=== PATIENT | female | born 1990 | race Two or more races ===

== ENCOUNTER 2022-07-30 10:32 | Emergency (ER) | payer MEDICAID ==
[~2022-07-30] VITALS: Ht 167.6 cm; Wt 85.0 kg
[2022-07-30 11:30] VITALS: BP 103/73
[2022-07-30] MEDS ORDERED: KETOROLAC TROMETH 60MG/2ML VIAL IM ONE (11:30)
[2022-07-30] MEDS ORDERED: METH750T22 PO (12:19)
[2022-07-30] MEDS ORDERED: IBUP800T27 PO (12:19)
== END 2022-07-30 12:30 | disposition home or self-care (01) ==
LOC: ER 10:32
DX: M54.42 Lumbago with sciatica, left side (principal); X50.1XXA Overexertion from prolonged static or awkward postures, initial encounter; Y93.89 Activity, other specified; Y92.89 Other specified places as the place of occurrence of the external cause; Y99.8 Other external cause status
CPT/HCPCS: 72100; 96372; 99283; J1885

== ENCOUNTER → 2022-10-11 | Outpatient (CLI) | payer OTHER ==
[~2022-10-11] MED LIST: IBUP800T27 PO; METH750T22 PO
[2022-10-13 09:51] LABS: Hepatitis B Surface Antibody Negative (Negative)
== END | disposition home or self-care (01) ==
LOC: LAB 06:59
PROVIDERS: ATTEND Family Medicine
DX: S61.233A Puncture wound without foreign body of left middle finger without damage to nail, initial encounter (principal); X58.XXXA Exposure to other specified factors, initial encounter; Y93.89 Activity, other specified; Y92.89 Other specified places as the place of occurrence of the external cause; Y99.8 Other external cause status
CPT/HCPCS: 36415; 86703; 86706; 86803; 87340

== ENCOUNTER → 2023-06-15 | Outpatient (CLI) | payer BC ==
[~2023-06-15] MED LIST changes: +IBUP-1456 PO; -IBUP800T27 PO; +METH-1182 PO; -METH750T22 PO
[2023-06-15 08:16] LABS: Basophils # (auto) 0 10 ^3/uL (0-0.2); Basophils % (auto) 0.5 % (0.0-2.0); Eosinophils # (auto) 0.2 10 ^3/uL (0-0.8); Eosinophils % (auto) 3.3 % (0.0-7.0); Hematocrit 39.4 % (36.0-46.0); Hemoglobin 12.9 g/dL (12.2-16.2); Lymphocytes # (auto) 2.8 10 ^3/uL (0.4-5.4); Lymphocytes % (auto) 41.4 % (10.0-50.0); Mean Corpuscular Hgb Conc. 32.7 g/dL (32.0-36.0); Mean Corpuscular Volume 85.5 fL (80.0-100.0); Monocytes # (auto) 0.4 10 ^3/uL (0-1.3); Monocytes % (auto) 5.6 % (0.0-12.0); Neutrophils # (auto) 3.3 10 ^3/uL (1.6-8.6); Neutrophils % (auto) 49.2 % (37.0-80.0); White Blood Cell 6.7 10^3/uL (4.4-10.8)
[2023-06-15 08:46] LABS: Alanine Aminotransferase 10 U/L (7-40); Albumin 4.3 g/dL (3.2-4.8); Alkaline Phosphatase 71 U/L (46-116); Anion Gap 7 (5-15); Aspartate Aminotransferase 12 U/L (13-40); BUN/Creatinine Ratio 8.8 (10.0-20.0); Blood Urea Nitrogen 7 mg/dL (9-23); Calcium 9.4 mg/dL (8.5-10.1); Carbon Dioxide 25 mmol/L (20-30); Chloride 105 mmol/L (98-107); Cholesterol 246 mg/dL (< 200); Glucose 96 mg/dL (74-106); HDL Cholesterol 49 mg/dL (40-59); LDL Cholesterol 177 mg/dL (< 100); Potassium 4.2 mmol/L (3.5-5.1); Sodium 137 mmol/L (136-145); Triglycerides 151 mg/dL (< 150)
[2023-06-15 08:47] LABS: Bilirubin, Total 0.3 mg/dL (0.2-1.0); Total Protein 7.5 g/dL (5.7-8.2)
== END | disposition home or self-care (01) ==
LOC: LAB 08:03
PROVIDERS: ATTEND Student in an Organized Health Care Education/Training Program
DX: Z00.00 Encounter for general adult medical examination without abnormal findings (principal); E66.01 Morbid (severe) obesity due to excess calories; L40.9 Psoriasis, unspecified; R79.89 Other specified abnormal findings of blood chemistry
CPT/HCPCS: 36415; 80053; 80061; 84439; 84443; 85025

== ENCOUNTER 2023-07-30 09:45 | Emergency (ER) | payer BC ==
[~2023-07-30] VITALS: Ht 167.6 cm; Wt 81.7 kg
[2023-07-30 09:50] VITALS: BP 111/94; PULSE 116; RESP 18; O2SAT 99
[2023-07-30] MEDS ORDERED: IBUPROFEN 800 MG TAB PO ONE (11:00)
[2023-07-30 12:26] VITALS: TEMP 98.5
[2023-07-30 12:42] LABS: Rapid Influenza A Negative (Negative); Rapid Influenza B Negative (Negative)
[2023-07-30 12:43] LABS: COVID19 ANTIGEN SOFIA FIA NEGATIVE (NEGATIVE)
[2023-07-30] MEDS ORDERED: IBUP1TAB5 PO (12:57)
[2023-07-30] MEDS ORDERED: PROM1SOL4 PO (12:57)
[2023-07-30] MEDS ORDERED: ACET500T58 PO (12:57)
== END 2023-07-30 13:18 | disposition home or self-care (01) ==
LOC: EEVIPCON 09:45 → ER 09:45
DX: U07.1 COVID-19 (principal)
CPT/HCPCS: 36415; 87426; 87804

== ENCOUNTER 2023-08-08 08:13 | Emergency (ER) | payer BC ==
[~2023-08-08] VITALS: Ht 162.6 cm; Wt 78.9 kg
[~2023-08-08 08:13] MED LIST changes: +ACET500T58 PO; +IBUP1TAB5 PO; +PROM1SOL4 PO
[2023-08-08 08:43] VITALS: BP 114/79; PULSE 81; RESP 17; TEMP 98.1; O2SAT 100
[2023-08-08] MEDS ORDERED: METOCLOPRAMIDE HCL 5MG/ml INJ 2ml VIAL IM ONE (08:45)
[2023-08-08] MEDS ORDERED: KETOROLAC TROMETH 30 MG/ML 1ML VIAL IM ONE (08:45)
[2023-08-08] MEDS ORDERED: diphenhdrAMINE HCL 50 MG/1 ML VL IM ONE (08:45)
[2023-08-08] MEDS ORDERED: ZOFR4T PO (09:25)
[2023-08-08] MEDS ORDERED: IBUP1TAB5 PO (09:25)
== END 2023-08-08 09:35 | disposition home or self-care (01) ==
LOC: ER 08:13
DX: G43.909 Migraine, unspecified, not intractable, without status migrainosus (principal)
CPT/HCPCS: 96372; 99284; J1200; J1885; J2765

== ENCOUNTER → 2024-05-22 | Outpatient (CLI) | payer BC ==
[~2024-05-22] MED LIST changes: +ZOFR4T PO
[2024-05-22 08:51] LABS: Urine Bacteria FEW /hpf (None Seen); Urine Blood TRACE /uL (Negative); Urine Clarity Turbid (Clear); Urine Color Colorless (Yellow); Urine Hyaline Cast FEW /lpf (0 - 2); Urine Mucus FEW (None Seen); Urine Protein, UAD 1+ (Negative); Urine Specific Gravity 1.023 (1.001-1.035); Urine Urobilinogen Normal (Negative); Urine WBC 11 /hpf (0 - 5)
[2024-05-22 08:57] LABS: Basophils # (auto) 0.1 10 ^3/uL (0-0.2); Basophils % (auto) 0.8 % (0.0-2.0); Eosinophils # (auto) 0.3 10 ^3/uL (0-0.8); Eosinophils % (auto) 2.3 % (0.0-7.0); Hematocrit 41.2 % (36.0-46.0); Hemoglobin 13.6 g/dL (12.2-16.2); Lymphocytes # (auto) 3.4 10 ^3/uL (0.4-5.4); Lymphocytes % (auto) 29.9 % (10.0-50.0); Mean Corpuscular Hemoglobin 28.6 pg (28.0-32.0); Mean Corpuscular Hgb Conc. 32.9 g/dL (32.0-36.0); Mean Corpuscular Volume 86.8 fL (80.0-100.0); Monocytes # (auto) 0.5 10 ^3/uL (0-1.3); Monocytes % (auto) 4.1 % (0.0-12.0); Neutrophils # (auto) 7.2 10 ^3/uL (1.6-8.6); Neutrophils % (auto) 62.9 % (37.0-80.0); Platelet Count (auto) 389 10^3/uL (140-450); Red Blood Cells 4.75 10^6/uL (4.0-5.20); Red Cell Distribution Width 13.7 % (11.8-14.3); White Blood Cell 11.5 10^3/uL (4.4-10.8)
[2024-05-22 09:07] LABS: Alanine Aminotransferase 15 U/L (7-40); Albumin 4.4 g/dL (3.2-4.8); Alkaline Phosphatase 87 U/L (46-116); Anion Gap 8 (5-15); BUN/Creatinine Ratio 9.8 (10.0-20.0); Blood Urea Nitrogen 8 mg/dL (9-23); Calcium 9.5 mg/dL (8.7-10.4); Carbon Dioxide 25 mmol/L (20-31); Chloride 105 mmol/L (98-107); Glucose 96 mg/dL (74-106); LDL Cholesterol 189 mg/dL (< 100); Sodium 138 mmol/L (136-145); Triglycerides 278 mg/dL (< 150)
[2024-05-22 09:08] LABS: Aspartate Aminotransferase 9 U/L (13-40); Bilirubin, Total 0.3 mg/dL (0.2-1.0); Cholesterol 284 mg/dL (< 200); HDL Cholesterol 64 mg/dL (40-59); Total Protein 7.9 g/dL (5.7-8.2)
[2024-05-22 09:19] LABS: Free T3 2.84 pg/mL (2.3-4.2)
[2024-05-23 11:17] LABS: Free T4 (Free Thyroxine) 1.05 ng/dL (0.89-1.76)
== END | disposition home or self-care (01) ==
LOC: LAB 08:11
PROVIDERS: ATTEND Internal Medicine
DX: Z00.01 Encounter for general adult medical examination with abnormal findings (principal); R79.89 Other specified abnormal findings of blood chemistry; E78.2 Mixed hyperlipidemia
CPT/HCPCS: 36415; 80053; 80061; 81001; 83036; 84439; 84443; 84481; 85025

== ENCOUNTER → 2024-08-20 | Outpatient (CLI) | payer BC ==
[2024-08-20 09:57] LABS: Basophils # (auto) 0 10 ^3/uL (0-0.2); Basophils % (auto) 0.4 % (0.0-2.0); Eosinophils # (auto) 0.3 10 ^3/uL (0-0.8); Eosinophils % (auto) 2.6 % (0.0-7.0); Hematocrit 39.6 % (36.0-46.0); Hemoglobin 13.4 g/dL (12.2-16.2); Lymphocytes # (auto) 1.5 10 ^3/uL (0.4-5.4); Lymphocytes % (auto) 14.7 % (10.0-50.0); Mean Corpuscular Hemoglobin 28.9 pg (28.0-32.0); Mean Corpuscular Hgb Conc. 33.8 g/dL (32.0-36.0); Mean Corpuscular Volume 85.6 fL (80.0-100.0); Monocytes # (auto) 0.6 10 ^3/uL (0-1.3); Monocytes % (auto) 6.1 % (0.0-12.0); Neutrophils # (auto) 7.9 10 ^3/uL (1.6-8.6); Neutrophils % (auto) 76.2 % (37.0-80.0); Platelet Count (auto) 362 10^3/uL (140-450); Red Blood Cells 4.62 10^6/uL (4.0-5.20); Red Cell Distribution Width 14.1 % (11.8-14.3); White Blood Cell 10.4 10^3/uL (4.4-10.8)
[2024-08-21 07:07] LABS: RPR Non Reactive (Non Reactive)
[2024-08-21 12:59] LABS: Amphetamine Screen, Urine Neg (NEGATIVE); Barbiturate Scree,Urine Neg (NEGATIVE); Opiate Scree,Urine Neg (NEGATIVE); Phencyclidine Screen, Urine Neg (NEGATIVE)
[2024-08-21 13:00] LABS: Benzodiazephine Screen, Urine Neg (NEGATIVE); Cocaine Screen, Urine Neg (NEGATIVE)
[2024-08-21 13:06] LABS: Chlamydia Trachomatis, NAA Negative (Negative); Neisseria gonorrhoeae, NAA Negative (Negative)
[2024-08-21 13:35] LABS: Cannabinoid Screen, Urine Neg (NEGATIVE)
== END | disposition home or self-care (01) ==
LOC: LAB 08:57
PROVIDERS: ATTEND Obstetrics & Gynecology
DX: Z34.00 Encounter for supervision of normal first pregnancy, unspecified trimester (principal); Z72.51 High risk heterosexual behavior; Z3A.00 Weeks of gestation of pregnancy not specified
CPT/HCPCS: 36415; 80307; 83036; 84144; 84702; 85025; 86592; 86703; 86762; 86900; 86901; 87086; 87340

== ENCOUNTER → 2024-09-25 | Outpatient (CLI) | payer BC | END | disposition home or self-care (01) | LOC: LAB 09:01 | PROVIDERS: ATTEND Obstetrics & Gynecology | DX: Z34.81 Encounter for supervision of other normal pregnancy, first trimester (principal); Z3A.00 Weeks of gestation of pregnancy not specified | CPT/HCPCS: 86850; 86900; 86901 ==

== ENCOUNTER → 2024-10-03 | Outpatient (CLI) | payer BC ==
[2024-10-03 08:34] LABS: Basophils # (auto) 0.1 10 ^3/uL (0-0.2); Basophils % (auto) 0.6 % (0.0-2.0); Eosinophils # (auto) 0.2 10 ^3/uL (0-0.8); Eosinophils % (auto) 1.3 % (0.0-7.0); Hematocrit 34.6 % (36.0-46.0); Hemoglobin 11.8 g/dL (12.2-16.2); Lymphocytes # (auto) 2.7 10 ^3/uL (0.4-5.4); Lymphocytes % (auto) 23.1 % (10.0-50.0); Mean Corpuscular Hemoglobin 29.3 pg (28.0-32.0); Mean Corpuscular Volume 86.1 fL (80.0-100.0); Monocytes # (auto) 0.7 10 ^3/uL (0-1.3); Monocytes % (auto) 5.6 % (0.0-12.0); Neutrophils # (auto) 8.3 10 ^3/uL (1.6-8.6); Neutrophils % (auto) 69.4 % (37.0-80.0); Platelet Count (auto) 321 10^3/uL (140-450); Red Blood Cells 4.02 10^6/uL (4.0-5.20); Red Cell Distribution Width 13.9 % (11.8-14.3); White Blood Cell 11.9 10^3/uL (4.4-10.8)
[2024-10-03 09:11] LABS: Alanine Aminotransferase 13 U/L (7-40); Alkaline Phosphatase 71 U/L (46-116); Anion Gap 10 (5-15); Aspartate Aminotransferase 15 U/L (13-40); BUN/Creatinine Ratio 8.2 (10.0-20.0); Bilirubin, Total 0.3 mg/dL (0.2-1.0); Calcium 9.2 mg/dL (8.7-10.4); Carbon Dioxide 24 mmol/L (20-31); Chloride 103 mmol/L (98-107); Glucose 84 mg/dL (74-106); Potassium 4.3 mmol/L (3.5-5.1); Sodium 137 mmol/L (136-145); Total Protein 6.9 g/dL (5.7-8.2)
[2024-10-03 09:42] LABS: Blood Urea Nitrogen 5 mg/dL (9-23); Cholesterol 303 mg/dL (< 200); HDL Cholesterol 67 mg/dL (40-59); LDL Cholesterol 194 mg/dL (< 100); Triglycerides 265 mg/dL (< 150)
== END | disposition home or self-care (01) ==
LOC: LAB 08:09
PROVIDERS: ATTEND Internal Medicine
DX: E78.2 Mixed hyperlipidemia (principal)
CPT/HCPCS: 36415; 80053; 80061; 85025

== ENCOUNTER → 2024-10-22 | Outpatient (CLI) | payer BC ==
[2024-10-22 13:15] LABS: Urine Bacteria MOD /hpf (None Seen); Urine Blood Negative /uL (Negative); Urine Clarity Turbid (Clear); Urine Color Light-Yellow (Yellow); Urine Mucus FEW (None Seen); Urine Protein, UAD Negative (Negative); Urine Specific Gravity 1.017 (1.001-1.035); Urine Squamous Epithelial Cell MOD /hpf (<5); Urine Urobilinogen Normal (Negative); Urine WBC 8 /HPF (0-5); Urine pH 6.5 (5.0-9.0)
== END | disposition home or self-care (01) ==
LOC: LAB 12:57
PROVIDERS: ATTEND Licensed Practical Nurse
DX: N13.0 Hydronephrosis with ureteropelvic junction obstruction (principal)
CPT/HCPCS: 81001

== ENCOUNTER 2024-12-12 08:17 | Outpatient (CLI) | payer BC ==
[2024-12-12 08:33] LABS: Basophils # (auto) 0.1 10 ^3/uL (0-0.2); Basophils % (auto) 0.5 % (0.0-2.0); Eosinophils # (auto) 0.1 10 ^3/uL (0-0.8); Eosinophils % (auto) 1.3 % (0.0-7.0); Hematocrit 35.5 % (36.0-46.0); Hemoglobin 11.9 g/dL (12.2-16.2); Lymphocytes # (auto) 2.3 10 ^3/uL (0.4-5.4); Lymphocytes % (auto) 19.3 % (10.0-50.0); Mean Corpuscular Hemoglobin 28.6 pg (28.0-32.0); Mean Corpuscular Hgb Conc. 33.4 g/dL (32.0-36.0); Mean Corpuscular Volume 85.4 fL (80.0-100.0); Monocytes # (auto) 0.7 10 ^3/uL (0-1.3); Monocytes % (auto) 6.1 % (0.0-12.0); Neutrophils # (auto) 8.6 10 ^3/uL (1.6-8.6); Neutrophils % (auto) 72.8 % (37.0-80.0); Platelet Count (auto) 337 10^3/uL (140-450); Red Blood Cells 4.16 10^6/uL (4.0-5.20); Red Cell Distribution Width 14.4 % (11.8-14.3); White Blood Cell 11.8 10^3/uL (4.4-10.8)
== END 2024-12-12 17:00 | disposition home or self-care (01) ==
LOC: LAB 08:17
PROVIDERS: ATTEND Obstetrics & Gynecology
DX: Z34.80 Encounter for supervision of other normal pregnancy, unspecified trimester (principal); Z3A.00 Weeks of gestation of pregnancy not specified
CPT/HCPCS: 36415; 82951; 83036; 85025

== ENCOUNTER 2025-01-22 09:30 | Observation (INO) | payer BC ==
[~2025-01-22] VITALS: Ht 167.6 cm; Wt 98.9 kg
[2025-01-22 10:22] LABS: Hematocrit 39.1 % (36.0-46.0); Hemoglobin 12.7 g/dL (12.2-16.2); Mean Corpuscular Hemoglobin 27.9 pg (28.0-32.0); Mean Corpuscular Volume 85.6 fL (80.0-100.0); Nucleated Red Blood Cells % 0.1 %
[2025-01-22 10:32] LABS: Alanine Aminotransferase 14 U/L (7-40); Albumin 4.0 g/dL (3.2-4.8); Anion Gap 7 (5-15); Calcium 9.2 mg/dL (8.7-10.4); Carbon Dioxide 25 mmol/L (20-31); Chloride 102 mmol/L (98-107); Glucose 83 mg/dL (74-106); Potassium 3.7 mmol/L (3.5-5.1); Total Protein 7.0 g/dL (5.7-8.2)
[2025-01-22 10:33] LABS: Alkaline Phosphatase 145 U/L (46-116); BUN/Creatinine Ratio 8.3 (10.0-20.0); Bilirubin, Total 0.3 mg/dL (0.2-1.0); Blood Urea Nitrogen < 5 mg/dL (9-23); Sodium 134 mmol/L (136-145); Uric Acid 3.1 mg/dL (3.1-7.8)
[2025-01-22 10:36] LABS: INR 0.95 (0.9-1.15); Partial Thromboplastin Time 31.3 SEC (24.5-34.5); Prothrombin Time 10.1 sec (9.3-11.8)
--- NOTE | 2025-01-22 10:47 | DVH ---
BIOPHYSICAL PROFILE HISTORY: R/O PIH Comparison Study: None TECHNIQUE: Multiple real-time grayscale sonographic images through the gravid uterus of the fetus wi th duplex Doppler color flow and M-mode spectral analysis FINDINGS: BIOPHYSICAL PROFILE: breathing score: 2 movement score: 2 tone score: 2 Quantitative SUNSHINE score: 2 (SUNSHINE: 11.3 Cm.) Total score: 8 The cervix is closed and measures 3.0 cm Single live fetus in cephalic presentation. heart rate 138 beats per minute. Posterior placenta without previa or abruption IMPRESSION: Biophysical profile score: 8
[2025-01-22 11:07] LABS: Urine Protein, UAD Negative (Negative)
[2025-01-22 11:17] LABS: Protein, Urine 21.1 mg/dL (1-14)
[2025-01-22] MEDS: TERBUTALINE SULFATE 1 MG/ML 1ML VIAL SC SCH (11:32)
[2025-01-22] MEDS ORDERED: PREN-96 PO (12:07)
--- NOTE | 2025-01-23 04:47 | DVHDS2 ---
Physician Discharge Progress N Final Diagnosis: PIH 33WKS Operations or Procedures: Operations or Procedures NST REACTIVE REVIWED,SONO Condition on Discharge: Good Disposition: Home Discharge Instructions: Diet: Regular Activity: No Restrictions, As Tolerated Medications: NA Follow Up Care: Specialist: 1W Discharge Statement: "Patient was advised to return to the ER or call 911 if any headaches, dizziness, shortness of breath, chest pain, abdominal pain, bleeding, fevers, or worsening of medical condition. Patient was counseled about treatment plan, medications, possible side effects, patientverbalized understanding. All questions were answered to the best of my ability. This discharge took greater then 30 minutes in planning, reviewing documentat ion, counseling the patient, and discussing with other team members." Visit Coding OBGYN Date of Service: Jan 22, 2025 Billing Provider: BEATRIS BARGER DO ASSISTANT GOLF COACH Common Visit Codes: 95945-[id number] OBS CARE (HIGH) ASSISTANT GOLF COACH Procedure Codes: 98576-66- NON-STRESS TEST BEATRIS BARGER DO Jan 23, 2025 04:47
== END 2025-01-22 12:15 | disposition home or self-care (01) ==
LOC: LDRP 09:30 → UNDOADMOB 09:30 → LDRP 09:43
PROVIDERS: ADMIT Obstetrics & Gynecology; ATTEND Obstetrics & Gynecology
DX: O13.3 Gestational [pregnancy-induced] hypertension without significant proteinuria, third trimester (principal); Z98.890 Other specified postprocedural states; Z79.899 Other long term (current) drug therapy; Z3A.33 33 weeks gestation of pregnancy
CPT/HCPCS: 36415; 76818; 80053; 81001; 81002; 82570; 84156; 84550; 85025; 85610; 85730; 94760; G0378; J3105; 59025; 76819; 96372

== ENCOUNTER 2025-02-10 10:28 | Observation (INO) | payer BC ==
[~2025-02-10 10:28] MED LIST changes: +PREN-96 PO
--- NOTE | 2025-02-11 06:29 | DVHDS2 ---
Discharge Summary Date of Admission Feb 10, 2025 at 10:28 Date of Discharge: Feb 10, 2025 Admitting Diagnosis 36 weeks, dizziness , decreased FM Brief Hx & Hospital Course: Decreased FM reassuring NST and US performed Operations or Procedures none Condition at Discharge: Good Final Diagnosis/Problems List reasuring ht tones, no pathology or maternal Discharge Disposition: Home Discharge Instruct/Medications Diet: Regular Activity: Light activity Activity comment: kick counts labor precautions Scheduled Ibuprofen (Ibuprofen), 1 TAB PO TID Ibuprofen Micronized (Ibuprofen), 600 MG PO TIDWMEALS Methocarbamol (Methocarbamol), 750 MG PO BID Vit W/ Ferrous Fumara ( One Daily), 1 TAB PO DAILY, (Reported) Scheduled PRN Acetaminophen (Acetaminophen), 1,000 MG PO TIDPRN PRN Ibuprofen Micronized (Ibuprofen), 600 MG PO Q6HP PRN Ondansetron Odt 4MG Tab (Zofran Po), 4 MG PO Q6HP PRN Promethazine-Dm (Promethazine Dm 6.25-15 mg/5Ml), 5 ML PO TIDPRN PRN Discharge Statement: "Patient was advised to return to the ER or call 911 if any headaches, dizziness, shortness of breath, chest pain, abdominal pain, bleeding, fevers, or worsening of medical condition. Patient was counseled about treatment plan, medications, possible side effects, patientverbalized understanding. All questions were answered to the best of my ability. This discharge took greater then 30 minutes in planning, reviewing documentation, counseling the patient, and discussing with other team members." ASSESSMENT ASSESSMENT Assessment Visit Coding OBGYN Date of Service: Feb 10, 2025 Billing Provider: INEZ ALBRIGHT DO CHIEF CLINICAL OFFICER Common Visit Codes: 78145-ILL/OBS SAME DATE (LOW), 40297-DXM/OBS SAME DATE (MOD), 00104-MYP/OBS SAME DATE (HIGH) CHIEF CLINICAL OFFICER Procedure Codes: 59340-EXR DEL INCLUDING INEZ ALBRIGHT DO Feb 11, 2025 06:29
== END 2025-02-10 12:24 | disposition home or self-care (01) ==
LOC: LDRP 10:28 → UNDOADMOB 10:28 → LDRP 10:52 → UNDODISOB 12:24
PROVIDERS: ADMIT Obstetrics & Gynecology; ATTEND Obstetrics & Gynecology
DX: O36.8130 Decreased fetal movements, third trimester, not applicable or unspecified (principal); O26.893 Other specified pregnancy related conditions, third trimester; R42 Dizziness and giddiness; Z3A.36 36 weeks gestation of pregnancy; Z98.890 Other specified postprocedural states; Z79.899 Other long term (current) drug therapy
CPT/HCPCS: 59025; 81002; 94760; G0378

== ENCOUNTER 2025-02-19 10:36 | Observation (INO) | payer BC ==
[~2025-02-19] VITALS: Ht 167.6 cm; Wt 90.7 kg
--- NOTE | 2025-02-19 11:29 | DVH ---
BIOPHYSICAL PROFILE HISTORY: PIH TECHNIQUE: Multiple transabdominal real-time grayscale sonographic images through the gravid uterus of the fetus with duplex Doppler color flow and M-mode spectral analysis FINDINGS: BIOPHYSICAL PROFILE: breathing score: 2 movement score: 2 tone score: 2 Quantitative SUNSHINE score: 2 (SUNSHINE: 12.2 Cm.) Total score: 8 The cervix WAS NOT SEEN Single live fetus in cephalic presentation. heart rate 122 beats per minute. Grade II posterior placenta without previa or abruption IMPRESSION: Biophysical profile score: 8/8
[2025-02-19 11:39] LABS: Hematocrit 38.3 % (36.0-46.0); Hemoglobin 12.7 g/dL (12.2-16.2); Mean Corpuscular Hemoglobin 28.3 pg (28.0-32.0); Mean Corpuscular Volume 85.1 fL (80.0-100.0); Nucleated Red Blood Cells % 0.1 %
[2025-02-19 11:55] LABS: Alanine Aminotransferase 13 U/L (7-40); Anion Gap 9 (5-15); Calcium 8.8 mg/dL (8.7-10.4); Carbon Dioxide 22 mmol/L (20-31); Chloride 104 mmol/L (98-107); Potassium 4.1 mmol/L (3.5-5.1); Total Protein 6.5 g/dL (5.7-8.2); Uric Acid 3.7 mg/dL (3.1-7.8)
[2025-02-19 11:56] LABS: Albumin 3.7 g/dL (3.2-4.8); Alkaline Phosphatase 158 U/L (46-116); BUN/Creatinine Ratio 9.3 (10.0-20.0); Bilirubin, Total 0.3 mg/dL (0.2-1.0); Blood Urea Nitrogen < 5 mg/dL (9-23); Sodium 135 mmol/L (136-145)
[2025-02-19 12:09] LABS: Glucose 77 mg/dL (74-106); INR 0.89 (0.9-1.15); Partial Thromboplastin Time 29.9 SEC (24.5-34.5); Prothrombin Time 9.5 sec (9.3-11.8)
[2025-02-19 12:10] LABS: Urine Budding Yeast OCCASIONAL /hpf (None Seen); Urine Protein, UAD TRACE (Negative)
[2025-02-19 12:22] LABS: Protein, Urine 37.7 mg/dL (1-14)
--- NOTE | 2025-02-19 14:02 | DVHDS2 ---
Physician Discharge Progress N Final Diagnosis: pih 37wks Operations or Procedures: Operations or Procedures nst reactive reviwed,sono Condition on Discharge: Good Disposition: Home Discharge Instructions: Diet: Regular Activity: No Restrictions, As Tolerated Medications: do 24hr uroine and return in 2 days Follow Up Care: Specialist: 2d Discharge Statement: "Patient was advised to return to the ER or call 911 if any headaches, dizziness, shortness of breath, chest pain, abdominal pain, bleeding, fevers, or worsening of medical condition. Patient was counseled about treatment plan, medications, possible side effects, patientverbalized understanding. All questions were answered to the best of my ability. This discharge took greater then 30 minutes in planning, reviewing documentation, counseling the patient, and discussing with other team members." Visit Coding OBGYN Date of Service: Feb 19, 2025 Billing Provider: BEATRIS BARGER DO DIRECTOR OF PUBLIC SAFETY Common Visit Codes: [id number] INP/OBS CARE (HIGH) DIRECTOR OF PUBLIC SAFETY Procedure Codes: 79598-75- NON-STRESS TEST BEATRIS BARGER DO Feb 19, 2025 14:02
[2025-02-19] MEDS: LACTATED RINGER'S 1,000 ML IV ONE (14:25)
== END 2025-02-19 14:48 | disposition home or self-care (01) ==
LOC: LDRP 10:36 → UNDOADMOB 10:36 → LDRP 10:39
PROVIDERS: ADMIT Obstetrics & Gynecology; ATTEND Obstetrics & Gynecology
DX: O13.3 Gestational [pregnancy-induced] hypertension without significant proteinuria, third trimester (principal); Z3A.37 37 weeks gestation of pregnancy; Z79.899 Other long term (current) drug therapy
CPT/HCPCS: 36415; 76818; 80053; 81001; 81002; 82570; 84156; 84550; 85025; 85610; 85730; 94760; 96360; 96361; G0378; 59025; 76819

== ENCOUNTER 2025-02-21 13:57 | Observation (INO) | payer BC ==
[~2025-02-21] VITALS: Ht 167.6 cm; Wt 100.2 kg
--- NOTE | 2025-02-21 15:04 | DVH ---
BIOPHYSICAL PROFILE HISTORY: PIH TECHNIQUE: Multiple transabdominal real-time grayscale sonographic images through the gravid uterus of the fetus with duplex Doppler color flow and M-mode spectral analysis FINDINGS: BIOPHYSICAL PROFILE: breathing score: 2 movement score: 2 tone score: 2 Quantitative SUNSHINE score: 2 (SUNSHINE: 15.6 Cm.) Total score: 8 The cervix not well visualized Single live fetus in cephalic presentation. heart rate 139 beats per minute. Grade 3 posterior placenta without previa or abruption IMPRESSION: Biophysical profile score: 8
[2025-02-21 15:29] LABS: Urine Protein, UAD Negative (Negative)
[2025-02-21 15:42] LABS: Protein, Urine 19.1 mg/dL (1-14)
[2025-02-21 16:34] LABS: 24 Hr. Total Protein, Urine 764.0 mg/24 Hr (<149.1); Urine Total Volume, 24 Hours 4000.0 mL
[2025-02-21] MEDS: LACTATED RINGER'S 1,000 ML IV ONE (17:47)
== END 2025-02-21 17:00 | disposition home or self-care (01) ==
LOC: UNDOADMOB 13:57 → LDRP 13:57
PROVIDERS: ADMIT Obstetrics & Gynecology; ATTEND Obstetrics & Gynecology
DX: O13.3 Gestational [pregnancy-induced] hypertension without significant proteinuria, third trimester (principal); Z3A.37 37 weeks gestation of pregnancy; Z79.899 Other long term (current) drug therapy; Z98.890 Other specified postprocedural states
CPT/HCPCS: 76818; 81001; 81002; 82570; 84156; 94760; 96360; 96361; G0378; 59025; 76819

== ENCOUNTER 2025-02-22 06:46 | Observation (INO) | payer BC, MEDICAID ==
--- NOTE | 2025-02-22 14:01 | DVHDS2 ---
Physician Discharge Progress N Final Diagnosis: Gestational HTN Operations or Procedures: Operations or Procedures NST only Commentary: Commentary Bp's normal Not in labor NST category 1, reactive Condition on Discharge: Stable Disposition: Home Discharge Instructions: Diet: Regular Activity: Light activity Follow Up/Referral: as scheduled Medications: na Follow Up Care: Discharge Statement: "Patient was advised to return to the ER or call 911 if any headaches, diz ziness, shortness of breath, chest pain, abdominal pain, bleeding, fevers, or worsening of medical condition. Patient was counseled about treatment plan, medications, possible side effects, patientverbalized understanding. All questions were answered to the best of my ability. This discharge took greater then 30 minutes in planning, reviewing documentation, counseling the patient, and discussing with other team members." Visit Coding OBGYN Date of Service: Feb 22, 2025 Billing Provider: MADONNA HICKMAN DO SOUND TECHNICIAN Common Visit Codes: 47548-PAG/OBS SAME DATE (MOD) SOUND TECHNICIAN Procedure Codes: 96132-77- NON-STRESS TEST MADONNA HICKMAN DO Feb 22, 2025 14:01
== END 2025-02-22 11:11 | disposition home or self-care (01) ==
LOC: LDRP 09:58
PROVIDERS: ADMIT Obstetrics & Gynecology; ATTEND Obstetrics & Gynecology
DX: O13.3 Gestational [pregnancy-induced] hypertension without significant proteinuria, third trimester (principal); Z3A.38 38 weeks gestation of pregnancy; Z98.890 Other specified postprocedural states; Z79.899 Other long term (current) drug therapy
CPT/HCPCS: 59025; 81002; 94760; G0378

== ENCOUNTER 2025-02-25 07:02 | Inpatient (IN) | payer BC, MEDICAID ==
[~2025-02-25] VITALS: Ht 167.6 cm; Wt 100.2 kg
[2025-02-25] MEDS ORDERED: LIDOCAINE 2%HCL (LOCAL ANESTH.) INJ 20ML MDV IJ PRN (07:15)
[2025-02-25] MEDS ORDERED: BUTORPHANOL TARTRATE 2 MG/1 ML VIAL IV PRN ×2 (07:15)
[2025-02-25] MEDS: LACT. RINGERS/OXYTOCIN 20UNITS 500 ML IV ONE (07:45)
[2025-02-25 08:02] LABS: INR 0.91 (0.9-1.15); Partial Thromboplastin Time 29.4 SEC (24.5-34.5); Prothrombin Time 9.7 sec (9.3-11.8)
[2025-02-25 08:05] LABS: Hematocrit 37.3 % (36.0-46.0); Hemoglobin 12.4 g/dL (12.2-16.2); Mean Corpuscular Hemoglobin 28.5 pg (28.0-32.0); Mean Corpuscular Volume 85.6 fL (80.0-100.0); Nucleated Red Blood Cells % 0.0 %
[2025-02-25 08:06] LABS: Amphetamine Screen, Urine Neg (NEGATIVE); Barbiturate Scree,Urine Neg (NEGATIVE); Benzodiazephine Screen, Urine Neg (NEGATIVE); Cannabinoid Screen, Urine Neg (NEGATIVE); Cocaine Screen, Urine Neg (NEGATIVE); Opiate Scree,Urine Neg (NEGATIVE); Phencyclidine Screen, Urine Neg (NEGATIVE)
[2025-02-25 08:08] LABS: Alanine Aminotransferase 13 U/L (7-40); Albumin 3.9 g/dL (3.2-4.8); Alkaline Phosphatase 175 U/L (46-116); Anion Gap 12 (5-15); BUN/Creatinine Ratio 8.1 (10.0-20.0); Blood Urea Nitrogen < 5 mg/dL (9-23); Calcium 9.4 mg/dL (8.7-10.4); Carbon Dioxide 19 mmol/L (20-31); Chloride 104 mmol/L (98-107); Glucose 123 mg/dL (74-106); Potassium 3.5 mmol/L (3.5-5.1); Sodium 135 mmol/L (136-145); Total Protein 6.7 g/dL (5.7-8.2)
[2025-02-25 08:09] LABS: Bilirubin, Total 0.2 mg/dL (0.2-1.0)
--- NOTE | 2025-02-25 08:14 | DVHHP2 ---
OB CC & HPI Date Date of Admission: Feb 25, 2025 Patient Identification: : 1 Para: 0 EDC: Mar 08, 2025 EGA: 38.3 Chief Complaints: Reason for admission: induction of labor Indication for induction: other (PIH per Dr. Astudillo) Admission Nurse Assessment Rev: Yes History of Present Complaints 34 yo presents to unit for IOL for PIH, denies any ALVAREZ, blurry vision or epigastric pain at this time. denies lof or vag bleeding, confirms +FM and no UC at this time PNC: Routine PNC at [facility] OB with Dr. Astudillo, adequate visits. GTT wnl, dating based on 7wk sono, GBS positive. Past Medical History Cardiac: No pertinent Hx Pulmonary: No pertinent Hx Central Nervous System: No pertinent Hx GI: No pertinent Hx Hemotology/Oncology: No pertinent Hx Hepatobiliary: No pertinent Hx Psychiatric: Anxiety Musculoskeletal: No pertinent Hx Rheumotologic: No pertinent Hx Infectious Disease: No peritnent Hx ENT: No pertinent Hx Renal/: No pertinent Hx Endocrine: No pertinent Hx Dermatology: Psoriasis Past Surgical History: No pertinent Hx OB History OB History Care: Good Care Ultrasounds: Normal mid trimester US Obstetrical Complications: Other (PI) Medical Complications: None Allergies: Coded Allergies: NO KNOWN ALLERGIES (Unverified , 07/30/22) Allergies NKDA Home Meds Active Scripts Ondansetron Odt 4MG Tab (ZOFRAN PO) 4 Mg Tb, 4 MG PO Q6HP PRN, #30 TAB ODT TAB-DISSOLVE IN MOUTH, THEN SWALLOW Prov:JOSH MARIN PAC 08/08/23 Ibuprofen Micronized (Ibuprofen) 600 Mg Tab, 600 MG PO Q6HP PRN, #30 TAB Prov:JOSH MARIN PAC 08/08/23 Promethazine-Dm (Promethazine Dm 6.25-15 mg/5Ml) 1 Aurea Aurea, 5 ML PO TIDPRN PRN for 10 Days, #150 ML 0 Refills Prov:JOHNNA MEHTA [employer] 07/30/23 Acetaminophen (Acetaminophen) 500 Mg Tab, 1000 MG PO TIDPRN PRN for 10 Days, #60 TAB 0 Refills Prov:JOHNNA MEHTA [employer] 07/30/23 Ibuprofen Micronized (Ibuprofen) 600 Mg Tab, 600 MG PO TIDWMEALS for 10 Days, #30 TAB 0 Refills Prov:JOHNNA MEHTA [employer] 07/30/23 Methocarbamol (Methocarbamol) 750 Mg Tab, 750 MG PO BID, #20 TAB Prov:LORI CHEEMA PA 07/30/22 Ibuprofen (Ibuprofen) 800 Mg Tab, 1 TAB PO TID, #30 TAB Prov:LORI CHEEMA 07/30/22 Reported Medications Vit W/ Ferrous Fumara ( One Daily) Daily Tab, 1 TAB PO DAILY, #90 TAB 3 Refills 01/22/25 Current Medications Current Medications Medications (Trade) Dose Ordered Sig/Eliza Route PRN Reason Start Time Stop Time Status Last Admin Lactated Ringer's 1,000 ml @ 125 mls/hr Q8H IV 02/25/25 07:15 UNV Penicillin G Potassium [id number] units/Dextrose 50 ml @ 100 mls/hr Q4H IV 02/25/25 11:15 UNV Witch Silvia (Tucks) 1 pad PRN PRN TOP PERINEAL AREA DISCOMFORT 02/25/25 07:15 UNV Sodium Lauryl Sulfate (Phisoderm) 240 ml PRN PRN TOP PERINEAL AREA DISCOMFORT 02/25/25 07:15 UNV Benzocaine (Dermoplast) 1 applic PRN PRN TOP PERINEAL AREA DISCOMFORT 02/25/25 07:15 UNV Butorphanol Tartrate (Stadol Injection) 1 mg Q4HPRN PRN IV MODERATE PAIN (4-6 PAIN SCALE) 02/25/25 07:15 UNV Butorphanol Tartrate (Stadol Injection) 2 mg Q4HPRN PRN IV SEVERE PAIN (7-10 PAIN SCALE) 02/25/25 07:15 UNV Misoprostol (Cytotec) 50 mcg Q4HPRN PRN PO CERVICAL RIPENING 02/25/25 07:15 UNV Lidocaine HCl (Xylocaine) 20 ml ONCE PRN IJ PERINEAL AREA DISCOMFORT 02/25/25 07:15 UNV Family & Social History Family/Social History Past Family/Social History: Fmh: denies Social hx: denies alcohol, drugs or tobacco, denies IPV, feels safe at home Blood Type: O+ Rubella: immune RPR/VDRL: Negative GBS Status: Positive HBsAG: Negative Review of Systems Constitutional: No symptom reported Ears, Nose, & Throat: No symptom reported Eyes: No symptom reported Pulmonary/Respiratory: No symptom reported Cardiovascular: No symptom reported Gastrointestinal: No symptom reported Genitourinary: No symptom reported Musculoskeletal: No symptom reported Skin: No symptom reported Psychiatric: Anxiety Endocrine: No symptom reported Hemotologic/Lymphatic: No symptom reported All Other Systems pt states she has occ migraines OB Admission Exam Physical Exam Vitals: VSS see CPN HEENT: TMs Normal, Fontanelles Normal, Nasal Mucosa Normal, Eyes non-injected, Oropharynx Normal, PERRLA, Moist Membranes, EOMI Heart: Rhythm Normal Lungs: Clear Abdomen: Gravid Extremities: Edema (1+ non-pitting BLE) Reflexes: Normal Cervical Dilatation: 2cm Effacement: Other (60) Station: -2 Membranes: Intact Heart Rate: 120's Accelerations: Accelerations Present Decelerations: No Decelerations Fci Variability: Average (6-25) Contractions on Admission: 6-10 Minutes Apart Frequency of Contractions: 5 min Duration: 60 sec Intensity: Mild OB Plan Plan Admitting Diagnosis: 34yo IUP@38.3wks Induction of Labor for PIH Category I EFM Intact Membranes GBS positive Plan: Induction Induction Methd: Misoprostol protocol Other Plan: Admit to L&D Informed consent obtained Discussed risks, benefits, alternatives of IOL. Pt consents to IOL with PO cytotec. Start IV PCN when in active labor or ROM. monitoring per order Routine labs and preE labs ordered OB EFW ordered Pain mgmt PRN Frequent position changes in and out of bed encouraged Limit SVE unless necessary Intrauterine resuscitation PRN Anticipate CNM co-managing with Dr. Astudillo Visit Coding OBGYN Date of Service: Feb 25, 2025 Billing Provider: RYAN MCGRAW CNM CABIN CREW Common Visit Codes: 40971-[id number] INP/OBS CARE (HIGH) CABIN CREW Procedure Codes: 76338-48- NON-STRESS TEST ABRIL JASSO Feb 25, 2025 08:14
[2025-02-25 08:22] LABS: Urine Protein, UAD Negative (Negative)
[2025-02-25] MEDS: LACTATED RINGER'S 1,000 ML IV SCH (08:38)
[2025-02-25 10:27] LABS: Protein, Urine 30.5 mg/dL (1-14)
--- NOTE | 2025-02-25 11:13 | DVH ---
LIMITED OB ULTRASOUND > 14 WKS: HISTORY: PIH TECHNIQUE: Multiple real-time grayscale images of the gravid uterus with duplex Doppler color flow an d M-mode spectral analysis. TRANSDUCER: Transabdominal COMPARISON: None FINDINGS: IUP single live fetus at 37 weeks and 2 days based on composite averages of the BPD, head circumferen ce, abdominal circumference and femur length Estimated weight 3335 grams heart rate 128 beats per minute SUNSHINE 11.4 cm Cervix is not visualized Cephalic Presentation Grade 3, posterior Placenta without previa or abruption. IMPRESSION: IUP single live fetus at 37 weeks and 2 days AUA corresponding to an NORMA of 03/16/2025
--- NOTE | 2025-02-25 13:14 | DVHPN2 ---
OB Labor Progress Note Date and Time Seen Date Seen: Feb 25, 2025 Time Seen: 13:00 Subjective Patient reports: Feels worse (feels UC, 5/10 pain) Subjective Comment 34 yo , denies any onset of preE sx, 5/10 pain with UC Objective Vital Signs VSS see CPN [facility] [id number] [place] [id number] Ph: [phone] DIAGNOSTIC IMAGING Diagnostic Imaging Report : [id number] Signed PATIENT: MYRIAM PACHECOACCT: [id number] UNIT: [id number] : 1990 LOC: [facility] ROOM / BED: [facility]5 / A AGE / SEX: 34 / F ADM STATUS: ADM IN SERVICE 1000 ORDERING PHYSICIAN: RYAN MCGRAW CNM PROCEDURE(s): OBUS - OB ULTRASOUND COMP GTR 14 WKS REASON: [facility] ORDER NUMBER(s): [id number], ACCESSION NUMBER(s): [id number] LIMITED OB ULTRASOUND > 14 WKS: HISTORY: PIH TECHNIQUE: Multiple real-time grayscale images of the gravid uterus with duplex Doppler color flow and M-mode spectral analysis. TRANSDUCER: Transabdominal COMPARISON: None FINDINGS: IUP single live fetus at 37 weeks and 2 days based on composite averages of the BPD, head circumference, abdominal circumference and femur length Estimated weight 3335 grams heart rate 128 beats per minute SUNSHINE 11.4 cm Cervix is not visualized Cephalic Presentation Grade 3, posterior Placenta without previa or abruption. IMPRESSION: IUP single live fetus at 37 weeks and 2 days AUA corresponding to an NORMA of 03/16/2025 ATED BY: HAO SILVA MD DICTATED DATE/TIME: 02/25/25 1110 SIGNED BY: HAO SILVA MD SIGNED DATE/TIME: 02/25/25 111 CC: Monitoring Method Monitoring Method: External Heart Rate Heart Rate Baseline: 135 Heart Rate Variability: Moderate Presence of FHR Decelerations: No Changes in Trends of Patterns: No Are all 5 Components of the FH: Yes Contractions Contractions Frequency: Occasional (1-3) Duration of Contraction: 90 Contractions Intensity: Moderate Contractions Resting Tone: Relaxed Membranes Membranes: Intact Vaginal Exam Vag Exam Deferred: No Vaginal Exam Dilation: 3 Vaginal Exam Effacement: 70 Vaginal Exam Station: -2 Vaginal Exam Presentation: VTX Vaginal Exam Show: None Medications Medications - Pitocin: No Medications - Pain Medications: PRN Medication - Epidural: No Medication - Other s/p 1 dose of PO cytotec Lab Results Lab Results Current Medications Medications (Trade) Dose Ordered Sig/Eliza Start Time Stop Time Status Last Admin Dose Admin Lactated Ringer's 1,000 ml @ 125 mls/hr Q8H 02/25/25 07:15 02/25/25 14:07 125 MLS/HR Penicillin G Potassium 50 ml @ 100 mls/hr ONCE ONCE 02/25/25 07:15 02/25/25 08:20 DC Penicillin G Potassium [id number] units/Dextrose 50 ml @ 100 mls/hr Q4H 02/25/25 11:15 Witch Silvia (Tucks) 1 pad PRN PRN 02/25/25 07:15 02/25/25 16:10 1 PAD Sodium Lauryl Sulfate (Phisoderm) 240 ml PRN PRN 02/25/25 07:15 02/25/25 16:11 240 ML Benzocaine (Dermoplast) 1 applic PRN PRN 02/25/25 07:15 02/25/25 16:10 1 APPLIC Misoprostol (Cytotec) 50 mcg Q4HPRN PRN 02/25/25 07:15 02/25/25 13:27 DC 02/25/25 08:42 50 MCG Lidocaine HCl (Xylocaine) 20 ml ONCE PRN 02/25/25 07:15 Oxytocin 500 ml @ 999 mls/hr Q31M ONCE 02/25/25 07:15 02/25/25 08:20 DC Oxytocin 500 ml @ 125 mls/hr Q4H ONCE 02/25/25 07:45 02/25/25 11:44 DC Fluoxetine HCl (PROzac CAPSULE) 40 mg DAILY 02/25/25 20:00 Naloxone HCl (Narcan) 0.2 mg PRN ONCE 02/25/25 13:30 02/25/25 13:31 DC Ephedrine Sulfate (ePHEDrine SULFATE) 10 mg PRN ONCE 02/25/25 13:30 02/25/25 13:31 DC Ondansetron HCl (Zofran) 4 mg Q4HPRN PRN 02/25/25 13:30 02/25/25 13:41 4 MG Oxytocin 1,000 ml @ 6 ml/hr Q24H 02/25/25 15:15 02/25/25 15:34 6 ML/HR Terbutaline Sulfate (Brethine Inj) 0.25 mg ONCE PRN 02/25/25 15:15 Laboratory Tests Test 02/25/25 07:25 Range/Units White Blood Count 10.8 4.4-10.8 10^3/uL Red Blood Count 4.36 4.0-5.20 10^6/uL Hemoglobin 12.4 12.2-16.2 g/dL Hematocrit 37.3 36.0-46.0 % Mean Corpuscular Volume 85.6 80.0-100.0 fL Mean Corpuscular Hemoglobin 28.5 28.0-32.0 pg Mean Corpuscular Hemoglobin Concent 33.3 32.0-36.0 g/dL Red Cell Distribution Width 15.5 H 11.8-14.3 % Platelet Count 269 140-450 10^3/uL Mean Platelet Volume 10.4 6.9-10.8 fL Neutrophils (%) (Auto) 69.3 37.0-80.0 % Lymphocytes (%) (Auto) 23.0 10.0-50.0 % Monocytes (%) (Auto) 5.5 0.0-12.0 % Eosinophils (%) (Auto) 1.8 0.0-7.0 % Basophils (%) (Auto) 0.4 0.0-2.0 % Neutrophils # (Auto) 7.5 1.6-8.6 10 ^3/uL Lymphocytes # (Auto) 2.5 0.4-5.4 10 ^3/uL Monocytes # (Auto) 0.6 0-1.3 10 ^3/uL Eosinophils # (Auto) 0.2 0-0.8 10 ^3/uL Basophils # (Auto) 0 0-0.2 10 ^3/uL Nucleated Red Blood Cells 0.0 % Prothrombin Time 9.7 9.3-11.8 sec Prothrombin Time INR 0.91 0.9-1.15 Activated Partial Thromboplast Time 29.4 24.5-34.5 SEC Urine Color Colorless Yellow Urine Clarity Turbid H Clear Urine pH 7.5 5.0-9.0 Urine Specific Radiant 1.015 1.001-1.035 Urine Protein Negative Negative Urine Ketones Negative Negative Urine Blood Negative Negative /uL Urine Nitrite Negative Negative Urine Bilirubin Negative Negative Urine Urobilinogen Normal Negative mg/dL Urine Leukocyte Esterase 3+ Negative /uL Urine RBC 2 0 - 4 /hpf Urine Microscopic WBC 5 0-5 /HPF Urine Squamous Epithelial Cells Few <5 /hpf Urine Bacteria Few H None Seen /hpf Urine Creatinine 76.98 30.0-125.0 mg/dL Urine Protein/Creatinine Ratio 0.40 Urine Glucose Normal Normal mg/dL Urine Total Protein 30.5 H 1-14 mg/dL Sodium Level 135 L 136-145 mmol/L Potassium Level 3.5 3.5-5.1 mmol/L Chloride Level 104 98-107 mmol/L Carbon Dioxide Level 19 L 20-31 mmol/L Anion Gap 12 5-15 Blood Urea Nitrogen < 5 L 9-23 mg/dL Creatinine 0.62 0.550-1.02 mg/dL Glomerular Filtration Rate Calc 121 >90 mL/min BUN/Creatinine Ratio 8.1 L 10.0-20.0 Serum Glucose 123 H 74-106 mg/dL Uric Acid 3.8 3.1-7.8 mg/dL Calcium Level 9.4 8.7-10.4 mg/dL Total Bilirubin 0.2 0.2-1.0 mg/dL Aspartate Amino Transferase (AST) 24 13-40 U/L Alanine Aminotransferase (ALT) 13 7-40 U/L Alkaline Phosphatase 175 H 46-116 U/L Total Protein 6.7 5.7-8.2 g/dL Albumin 3.9 3.2-4.8 g/dL Urine Opiates Screen Neg NEGATIVE Urine Fentanyl Screen Neg NEGATIVE Urine Barbiturates Screen Neg NEGATIVE Urine Phencyclidine Screen Neg NEGATIVE Urine Amphetamines Screen Neg NEGATIVE Urine Benzodiazepines Screen Neg NEGATIVE Urine Cocaine Screen Neg NEGATIVE Urine Cannabinoids Screen Neg NEGATIVE Treponema pallidum Antibody Non-reactive Negative Assessment Assessment 34yo IUP@38.3wks Induction of Labor for PIH Category I EFM Intact Membranes GBS positive Plan Plan Discussed IV pitocin to continue IOL, pt agrees but wants to get the epidural first. RN to prep pt for epidural then start IV pitocin afterwards Start IV PCN when in active labor or ROM. monitoring per order Pain mgmt PRN Frequent position changes in and out of bed encouraged Limit SVE unless necessary Intrauterine resuscitation PRN Anticipate CNM co-managing with Dr. Astudillo Plan discussed with: Patient, Spouse Visit Coding OBGYN Date of Service: Feb 25, 2025 Billing Provider: RYAN MCGRAW CNM INCOMING FREIGHT CLERK Common Visit Codes: [id number] INP/OBS CARE(HIGH) ABRIL JASSO Feb 25, 2025 13:14
[2025-02-25] MEDS: NALOXONE HCL 0.4 MG/ML VIAL IV ONE (13:30)
[2025-02-25] MEDS: ONDANSETRON HCL 4 MG/2 ML VIAL IV PRN (13:41)
[2025-02-25] MEDS ORDERED: TERBUTALINE SULFATE 1 MG/ML 1ML VIAL SC PRN (15:15)
[2025-02-25] MEDS: LACT. RINGERS/OXYTOCIN 20UNITS 1,000 ML IV SCH (15:34)
[2025-02-25] MEDS: ROPIVACAINE HCL 100 ML ONE ×2 (15:35→21:14)
[2025-02-25] MEDS: WITCH HAZEL-GLYCERIN PAD TOP PRN (16:10)
[2025-02-25] MEDS: DERMOPLAST 60ML BOTTLE TOP PRN (16:10)
[2025-02-25] MEDS: PHISODERM TOP SOLN 240ML BTL TOP PRN (16:11)
[2025-02-25] MEDS: PENICILLIN G POT 5MIL/D5 50ML 50 ML IV ONE (19:12)
--- NOTE | 2025-02-25 19:14 | DVHPN2 ---
OB Labor Progress Note Date and Time Seen Date Seen: Feb 25, 2025 Time Seen: 18:50 Subjective Patient reports: No new complaints Subjective Comment 34 yo , denies any onset of preE sx, denies any pain, epidural working well, agrees to AROM Objective Vital Signs VSS Monitoring Method Monitoring Method: External Heart Rate Heart Rate Baseline: 155 Heart Rate Variability: Moderate Presence of FHR Accelerations: Yes Presence of FHR Decelerations: No Changes in Trends of Patterns: Yes Are all 5 Components of the FH: Yes Contractions Contractions Frequency: Occasional (1-3 min) Duration of Contraction: 90 Contractions Intensity: Moderate Contractions Resting Tone: Relaxed Membranes Membranes: Ruptured Amniotic Fluid Color: Bloody Vaginal Exam Vag Exam Deferred: No Vaginal Exam Effacement: 70 Vaginal Exam Station: -2 Vaginal Exam Presentation: VTX Vaginal Exam Show: Small Medications Medications - Pitocin: Yes (2MU) Medication - Epidural: Yes Medication - Other s/p PO cytotec x 1 Lab Results Lab Results Current Medications Medications (Trade) Dose Ordered Sig/Eliza Start Time Stop Time Status Last Admin Dose Admin Lactated Ringer's 1,000 ml @ 125 mls/hr Q8H 02/25/25 07:15 02/25/25 19:12 125 MLS/HR Penicillin G Potassium 50 ml @ 100 mls/hr ONCE ONCE 02/25/25 07:15 02/25/25 08:20 DC 02/25/25 19:12 100 MLS/HR Penicillin G Potassium 7640701 units/Dextrose 50 ml @ 100 mls/hr Q4H 02/25/25 11:15 [place] Silvia (Tucks) 1 pad PRN PRN 02/25/25 07:15 02/25/25 16:10 1 PAD Sodium Lauryl Sulfate (Phisoderm) 240 ml PRN PRN 02/25/25 07:15 02/25/25 16:11 240 ML Benzocaine (Dermoplast) 1 applic PRN PRN 02/25/25 07:15 02/25/25 16:10 1 APPLIC Misoprostol (Cytotec) 50 mcg Q4HPRN PRN 02/25/25 07:15 02/25/25 13:27 DC 02/25/25 08:42 50 MCG Lidocaine HCl (Xylocaine) 20 ml ONCE PRN 02/25/25 07:15 Oxytocin 500 ml @ 999 mls/hr Q31M ONCE 02/25/25 07:15 02/25/25 08:20 DC Oxytocin 500 ml @ 125 mls/hr Q4H ONCE 02/25/25 07:45 02/25/25 11:44 DC Fluoxetine HCl (PROzac CAPSULE) 40 mg DAILY 02/25/25 20:00 Naloxone HCl (Narcan) 0.2 mg PRN ONCE 02/25/25 13:30 02/25/25 13:31 DC Ephedrine Sulfate (ePHEDrine SULFATE) 10 mg PRN ONCE 02/25/25 13:30 02/25/25 13:31 DC Ondansetron HCl (Zofran) 4 mg Q4HPRN PRN 02/25/25 13:30 02/25/25 19:12 4 MG Oxytocin 1,000 ml @ 6 ml/hr Q24H 02/25/25 15:15 02/25/25 15:34 6 ML/HR Terbutaline Sulfate (Brethine Inj) 0.25 mg ONCE PRN 02/25/25 15:15 Laboratory Tests Test 02/25/25 07:25 Range/Units White Blood Count 10.8 4.4-10.8 10^3/uL Red Blood Count 4.36 4.0-5.20 10^6/uL Hemoglobin 12.4 12.2-16.2 g/dL Hematocrit 37.3 36.0-46.0 % Mean Corpuscular Volume 85.6 80.0-100.0 fL Mean Corpuscular Hemoglobin 28.5 28.0-32.0 pg Mean Corpuscular Hemoglobin Concent 33.3 32.0-36.0 g/dL Red Cell Distribution Width 15.5 H 11.8-14.3 % Platelet Count 269 140-450 10^3/uL Mean Platelet Volume 10.4 6.9-10.8 fL Neutrophils (%) (Auto) 69.3 37.0-80.0 % Lymphocytes (%) (Auto) 23.0 10.0-50.0 % Monocytes (%) (Auto) 5.5 0.0-12.0 % Eosinophils (%) (Auto) 1.8 0.0-7.0 % Basophils (%) (Auto) 0.4 0.0-2.0 % Neutrophils # (Auto) 7.5 1.6-8.6 10 ^3/uL Lymphocytes # (Auto) 2.5 0.4-5.4 10 ^3/uL Monocytes # (Auto) 0.6 0-1.3 10 ^3/uL Eosinophils # (Auto) 0.2 0-0.8 10 ^3/uL Basophils # (Auto) 0 0-0.2 10 ^3/uL Nucleated Red Blood Cells 0.0 % Prothrombin Time 9.7 9.3-11.8 sec Prothrombin Time INR 0.91 0.9-1.15 Activated Partial Thromboplast Time 29.4 24.5-34.5 SEC Urine Color Colorless Yellow Urine Clarity Turbid H Clear Urine pH 7.5 5.0-9.0 Urine Specific [place] 1.015 1.001-1.035 Urine Protein Negative Negative Urine Ketones Negative Negative Urine Blood Negative Negative /uL Urine Nitrite Negative Negative Urine Bilirubin Negative Negative Urine Urobilinogen Normal Negative mg/dL Urine Leukocyte Esterase 3+ Negative /uL Urine RBC 2 0 - 4 /hpf Urine Microscopic WBC 5 0-5 /HPF Urine Squamous Epithelial Cells Few <5 /hpf Urine Bacteria Few H None Seen /hpf Urine Creatinine 76.98 30.0-125.0 mg/dL Urine Protein/Creatinine Ratio 0.40 Urine Glucose Normal Normal mg/dL Urine Total Protein 30.5 H 1-14 mg/dL Sodium Level 135 L 136-145 mmol/L Potassium Level 3.5 3.5-5.1 mmol/L Chloride Level 104 98-107 mmol/L Carbon Dioxide Level 19 L 20-31 mmol/L Anion Gap 12 5-15 Blood Urea Nitrogen < 5 L 9-23 mg/dL Creatinine 0.62 0.550-1.02 mg/dL Glomerular Filtration Rate Calc 121 >90 mL/min BUN/Creatinine Ratio 8.1 L 10.0-20.0 Serum Glucose 123 H 74-106 mg/dL Uric Acid 3.8 3.1-7.8 mg/dL Calcium Level 9.4 8.7-10.4 mg/dL Total Bilirubin 0.2 0.2-1.0 mg/dL Aspartate Amino Transferase (AST) 24 13-40 U/L Alanine Aminotransferase (ALT) 13 7-40 U/L Alkaline Phosphatase 175 H 46-116 U/L Total Protein 6.7 5.7-8.2 g/dL Albumin 3.9 3.2-4.8 g/dL Urine Opiates Screen Neg NEGATIVE Urine Fentanyl Screen Neg NEGATIVE Urine Barbiturates Screen Neg NEGATIVE Urine Phencyclidine Screen Neg NEGATIVE Urine Amphetamines Screen Neg NEGATIVE Urine Benzodiazepines Screen Neg NEGATIVE Urine Cocaine Screen Neg NEGATIVE Urine Cannabinoids Screen Neg NEGATIVE Treponema pallidum Antibody Non-reactive Negative Assessment Assessment 34 yo IUP @ 38.3 wk IOL for PIH Category I EFM AROM, bloody GBS positive Plan Plan Titrate IV pitocin per order IV PCN to be started now monitoring per order Pain mgmt - epidural in place Frequent position changes in bed encouraged Limit SVE unless necessary Intrauterine resuscitation PRN Anticipate CNM co-managing with Dr. Astudillo Plan discussed with: Patient, Spouse Visit Coding OBGYN Date of Service: Feb 25, 2025 Billing Provider: RYAN MCGRAW CNM COFFEE SAMPLER Common Visit Codes: [id number] INP/OBS CARE(HIGH) ABRIL JASSO Feb 25, 2025 19:14
[2025-02-25] MEDS: PENICILLIN G POTASSIUM 2,500,000 UNITS in D5W 5% 50 ML IV SCH (23:24)
[2025-02-26] MEDS: diphenhdrAMINE HCL 50 MG/1 ML VL IV ONE (01:45)
--- NOTE | 2025-02-26 01:56 | DVHPN2 ---
CNM Labor Progress Note Date and Time Seen Date Seen: Feb 26, 2025 Time Seen: 01:50 Subjective Subjective Comment Pt reports feeling on and off pressure. Denies ALVAREZ/vision changes/RUQ pain. Objective Vital Signs VSS, see chart Monitoring Method Monitoring Method: External Heart Rate Heart Rate Baseline: 145 Heart Rate Variability: Minimal Presence of FHR Accelerations: Yes Presence of FHR Decelerations: Yes Heart Rate Type of Decel: Variable Decelerations (x1) Comment on Trends or Patterns: maternal position changed Are all 5 Components of the FH: Yes Contractions Contractions Frequency: Other (q2-3) Duration of Contraction: 70 Contractions Intensity: Moderate Contractions Resting Tone: Relaxed Membranes Membranes: Ruptured Amniotic Fluid Color: Clear Vaginal Exam Vag Exam Deferred: No (SVE by RN: 9.5//+1, swollen anterior lip) Vaginal Exam Presentation: VTX Vaginal Exam Show: Small Medications Medications - Pitocin: Yes (8mu) Medication - Epidural: Yes Medication - Other s/p 1 dose of PO cytotec Lab Results Lab Results Current Medications Medications (Trade) Dose Ordered Sig/Eliza Start Time Stop Time Status Last Admin Dose Admin Lactated Ringer's 1,000 ml @ 125 mls/hr Q8H 02/25/25 07:15 02/25/25 19:12 125 MLS/HR Penicillin G Potassium 50 ml @ 100 mls/hr ONCE ONCE 02/25/25 07:15 02/25/25 08:20 DC 02/25/25 19:12 100 MLS/HR Penicillin G Potassium [id number] units/Dextrose 50 ml @ 100 mls/hr Q4H 02/25/25 11:15 02/25/25 23:24 100 MLS/HR Gamaliel Vega (Tucks) 1 pad PRN PRN 02/25/25 07:15 02/25/25 16:10 1 PAD Sodium Lauryl Sulfate (Phisoderm) 240 ml PRN PRN 02/25/25 07:15 02/25/25 16:11 240 ML Benzocaine (Dermoplast) 1 applic PRN PRN 02/25/25 07:15 02/25/25 16:10 1 APPLIC Misoprostol (Cytotec) 50 mcg Q4HPRN PRN 02/25/25 07:15 02/25/25 13:27 DC 02/25/25 08:42 50 MCG Lidocaine HCl (Xylocaine) 20 ml ONCE PRN 02/25/25 07:15 Oxytocin 500 ml @ 999 mls/hr Q31M ONCE 02/25/25 07:15 02/25/25 08:20 DC Oxytocin 500 ml @ 125 mls/hr Q4H ONCE 02/25/25 07:45 02/25/25 11:44 DC Fluoxetine HCl (PROzac CAPSULE) 40 mg DAILY 02/25/25 20:00 02/25/25 20:01 40 MG Naloxone HCl (Narcan) 0.2 mg PRN ONCE 02/25/25 13:30 02/25/25 13:31 DC Ephedrine Sulfate (ePHEDrine SULFATE) 10 mg PRN ONCE 02/25/25 13:30 02/25/25 13:31 DC Ondansetron HCl (Zofran) 4 mg Q4HPRN PRN 02/25/25 13:30 02/25/25 22:58 4 MG Oxytocin 1,000 ml @ 6 ml/hr Q24H 02/25/25 15:15 02/25/25 15:34 6 ML/HR Terbutaline Sulfate (Brethine Inj) 0.25 mg ONCE PRN 02/25/25 15:15 Diphenhydramine HCl (Benadryl Injection) 50 mg ONCE ONCE 02/26/25 01:45 02/26/25 01:46 DC 02/26/25 01:45 50 MG Laboratory Tests Test 02/25/25 07:25 Range/Units White Blood Count 10.8 4.4-10.8 10^3/uL Red Blood Count 4.36 4.0-5.20 10^6/uL Hemoglobin 12.4 12.2-16.2 g/dL Hematocrit 37.3 36.0-46.0 % Mean Corpuscular Volume 85.6 80.0-100.0 fL Mean Corpuscular Hemoglobin 28.5 28.0-32.0 pg Mean Corpuscular Hemoglobin Concent 33.3 32.0-36.0 g/dL Red Cell Distribution Width 15.5 H 11.8-14.3 % Platelet Count 269 140-450 10^3/uL Mean Platelet Volume 10.4 6.9-10.8 fL Neutrophils (%) (Auto) 69.3 37.0-80.0 % Lymphocytes (%) (Auto) 23.0 10.0-50.0 % Monocytes (%) (Auto) 5.5 0.0-12.0 % Eosinophils (%) (Auto) 1.8 0.0-7.0 % Basophils (%) (Auto) 0.4 0.0-2.0 % Neutrophils # (Auto) 7.5 1.6-8.6 10 ^3/uL Lymphocytes # (Auto) 2.5 0.4-5.4 10 ^3/uL Monocytes # (Auto) 0.6 0-1.3 10 ^3/uL Eosinophils # (Auto) 0.2 0-0.8 10 ^3/uL Basophils # (Auto) 0 0-0.2 10 ^3/uL Nucleated Red Blood Cells 0.0 % Prothrombin Time 9.7 9.3-11.8 sec Prothrombin Time INR 0.91 0.9-1.15 Activated Partial Thromboplast Time 29.4 24.5-34.5 SEC Urine Color Colorless Yellow Urine Clarity Turbid H Clear Urine pH 7.5 5.0-9.0 Urine Specific [place] 1.015 1.001-1.035 Urine Protein Negative Negative Urine Ketones Negative Negative Urine Blood Negative Negative /uL Urine Nitrite Negative Negative Urine Bilirubin Negative Negative Urine Urobilinogen Normal Negative mg/dL Urine Leukocyte Esterase 3+ Negative /uL Urine RBC 2 0 - 4 /hpf Urine Microscopic WBC 5 0-5 /HPF Urine Squamous Epithelial Cells Few <5 /hpf Urine Bacteria Few H None Seen /hpf Urine Creatinine 76.98 30.0-125.0 mg/dL Urine Protein/Creatinine Ratio 0.40 Urine Glucose Normal Normal mg/dL Urine Total Protein 30.5 H 1-14 mg/dL Sodium Level 135 L 136-145 mmol/L Potassium Level 3.5 3.5-5.1 mmol/L Chloride Level 104 98-107 mmol/L Carbon Dioxide Level 19 L 20-31 mmol/L Anion Gap 12 5-15 Blood Urea Nitrogen < 5 L 9-23 mg/dL Creatinine 0.62 0.550-1.02 mg/dL Glomerular Filtration Rate Calc 121 >90 mL/min BUN/Creatinine Ratio 8.1 L 10.0-20.0 Serum Glucose 123 H 74-106 mg/dL Uric Acid 3.8 3.1-7.8 mg/dL Calcium Level 9.4 8.7-10.4 mg/dL Total Bilirubin 0.2 0.2-1.0 mg/dL Aspartate Amino Transferase (AST) 24 13-40 U/L Alanine Aminotransferase (ALT) 13 7-40 U/L Alkaline Phosphatase 175 H 46-116 U/L Total Protein 6.7 5.7-8.2 g/dL Albumin 3.9 3.2-4.8 g/dL Urine Opiates Screen Neg NEGATIVE Urine Fentanyl Screen Neg NEGATIVE Urine Barbiturates Screen Neg NEGATIVE Urine Phencyclidine Screen Neg NEGATIVE Urine Amphetamines Screen Neg NEGATIVE Urine Benzodiazepines Screen Neg NEGATIVE Urine Cocaine Screen Neg NEGATIVE Urine Cannabinoids Screen Neg NEGATIVE Treponema pallidum Antibody Non-reactive Negative Assessment Assessment 34yo IUP@38.4wks Induction of Labor for PIH Category II EFM AROM, clear fluid GBS positive Plan Plan Benadryl 50mg IVP ordered for cervical swelling. Plan is to reassess cervix in 1 hour Continue with IV pitocin titration per order Continue IV PCN when in active labor or ROM. monitoring per order Pain mgmt - epidural in place Frequent position changes in bed encouraged Intrauterine resuscitation PRN Anticipate CELESTE co-managing with Dr. Astudillo Plan discussed with: Patient, Spouse, Other (family) Visit Coding OBGYN Date of Service: Feb 26, 2025 Billing Provider: RYAN MCGRAW CNM SENIOR MANAGER QUALITY ASSURANCE Common Visit Codes: [id number] INP/OBS CARE(HIGH) RYAN MCGRAW CNM Feb 26, 2025 01:56
[2025-02-26] MEDS: GENTAMICIN SULFATE 4 ML ONE (04:37)
[2025-02-26] MEDS: CARBOPROST TROMETHAMINE 250 MCG/1ML VIAL IM ONE ×2 (04:58→05:00)
[2025-02-26] MEDS: DIPHENOXYLATE W/ATROPINE 2.5 MG TAB ONE (04:58)
[2025-02-26] MEDS ORDERED: DIPHENOXYLATE W/ATROPINE 2.5 MG TAB PO ONE (05:00)
[2025-02-26] MEDS: ROPIVACAINE HCL 100 ML ONE (05:00)
[2025-02-26] MEDS: LACT. RINGERS/OXYTOCIN 20UNITS 500 ML IV ONE (05:03)
[2025-02-26] MEDS: ACETAMINOPHEN 500 MG TAB or CAP PO ONE (05:04)
[2025-02-26] MEDS: AMPICILLIN SOD 1 GM VL ONE (05:13)
[2025-02-26] MEDS ORDERED: AMPICILLIN INJ 1 GM in SODIUM CHL 0.9% 100 ML IV SCH (06:00)
[2025-02-26] MEDS ORDERED: IBUP-1456 PO (06:14)
[2025-02-26] MEDS ORDERED: PREN-96 PO (06:14)
[2025-02-26] MEDS ORDERED: DOCU-94 PO (06:14)
--- NOTE | 2025-02-26 06:14 | LDN2 ---
Labor and Delivery Note Date 02/26/25 Age 34 1 Para 1 AB 0 EDC 03/08/25 EGA 38.4 Diagnosis IOL for PIH Vaginal Delivery: VTX Vacuum Assisted: No Placenta: Spontaneous Sex: Male Weight 3300g Apgars 8/9 Nuchal Cord Transected: No Amniotic Fluid: Clear Anesthesia epidural Episiotomy: No Extension: No Repaired with 1st deg perineal, left sulcus, and bilateral labial laceration repaired with 3-0 vicryl EBL 400 ml Labs Laboratory Tests 08/20/24 09:15: Hepatitis B Surface Antigen Negative, HIV (1&2) Antibody Negative, Rubella Antibody Positive Blood Bank 02/25/25 07:25: Blood Type O POSITIVE Complications chorioamnionitis - continue IV amp/gent for 24 hours, tylenol 1000mg PO given Conditions stable Duplicating Machine Operator Jim Comments/Significant Med Aleisha At 0439, this 34yo now delivered a viable male infant by with of 8/9. JAZMIN presentation. RT at bedside. placed skin to skin on pt's chest. TXA IV 1g given. Cord clamped and cut after pulsation stopped. Cord blood sent. IV Pitocin bolus started. Placenta delivered spontaneously, intact, 3 vessel c Garrick pop. Straight cath placed in urethra to drain urine of 300ml. Cytotec 800mcg placed in rectum for PPH prophylaxis. Pt has 1st deg perineal, left sulcus, and bilateral labial laceration, repaired with 3-0 vicryl. Cervix, vagina inspected (intact). pitocin 10u IM given due to IV site infiltration while RNs place another IV. Fundus firm U-1, midline, moderate lochia. QBL 400ml . VSS. count correct x 2. Patient to PP care and baby to couplet care, mom and baby stable. Visit Coding OBGYN Date of Service: Feb 26, 2025 Billing Provider: RYAN MCGRAW CNM FIXTURE REPAIRER FABRICATOR Common Visit Codes: PROCEDURE ONLY FIXTURE REPAIRER FABRICATOR Procedure Codes: [id number] DEL INCLUDING ARBIL JASSO Feb 26, 2025 06:14
[2025-02-26] MEDS: AMPICILLIN IV SCH (07:12)
[2025-02-26] MEDS: SODIUM CHL 0.9% IV SCH (07:12)
[2025-02-26] MEDS: DOCUSATE SOD 100 MG CAP PO SCH (08:00)
[2025-02-26] MEDS: PRENATAL VITAMIN TAB PO SCH (10:07)
[2025-02-26 11:05] VITALS: BP 119/68; PULSE 68; RESP 17; TEMP 98.6; O2SAT 98
[2025-02-26] MEDS: GENTAMICIN SULFATE 120 MG in D5W 5% 100 ML IV SCH (11:07)
[2025-02-26] MEDS: IBUPROFEN 600 MG TAB PO PRN (14:19)
[2025-02-26 15:06] VITALS: BP 106/53; PULSE 90; RESP 17; TEMP 98.2; O2SAT 97
[2025-02-26 19:00] VITALS: BP 118/59; PULSE 83; RESP 17; TEMP 98; O2SAT 96
[2025-02-26 20:10] LABS: Hematocrit 31.5 % (36.0-46.0); Hemoglobin 10.3 g/dL (12.2-16.2); Mean Corpuscular Hemoglobin 28.1 pg (28.0-32.0); Mean Corpuscular Volume 86.2 fL (80.0-100.0); Nucleated Red Blood Cells % 0.1 %
[2025-02-26] MEDS: IBUPROFEN 800 MG TAB PO PRN (20:14)
[2025-02-26] MEDS: ACETAMINOPHEN 325 MG TAB PO PRN (22:13)
[2025-02-26 23:00] VITALS: BP 94/50; PULSE 76; RESP 16; TEMP 97.9; O2SAT 96
--- NOTE | 2025-02-27 00:24 | DVHPN2 ---
Progress Note Date Seen: Feb 27, 2025 Subjective S: bleeding is less, eating food without issues, denies lightheaded/dizziness, pain well controlled with oral medications, no concerns with urinating, passing flatus, no BM yet, ambulating well, well. denies ALVAREZ/vision changes/RUQ pain. vital signs Vital Sign Date Time Temp Pulse Resp B/P (MAP) Pulse Ox O2 Delivery O2 Flow Rate FiO2 02/26/25 23:00 97.9 76 16 94/50 (65) 96 97.9 02/26/25 19:00 Room Air Total Intake and Output 02/26/25 02/26/25 02/27/25 15:00 23:00 07:00 Output Total 2400 ml Balance -2400 ml medications Current Medications Medications Dose Ordered Sig/Eliza Route Start Time Stop Time Status Last Admin Dose Admin Lactated Ringer's 1,000 ml @ 125 mls/hr Q8H IV 02/25/25 07:15 02/26/25 11:06 125 MLS/HR Witch Silvia 1 pad PRN PRN TOP 02/25/25 07:15 02/25/25 16:10 1 PAD Sodium Lauryl Sulfate 240 ml PRN PRN TOP 02/25/25 07:15 02/25/25 16:11 240 ML Benzocaine 1 applic PRN PRN TOP 02/25/25 07:15 02/25/25 16:10 1 APPLIC Butorphanol Tartrate 1 mg Q4HPRN PRN IV 02/25/25 07:15 Cancel Butorphanol Tartrate 2 mg Q4HPRN PRN IV 02/25/25 07:15 Cancel Ondansetron HCl 4 mg Q4HPRN PRN IV 02/25/25 13:30 02/26/25 03:31 4 MG Ampicillin Sodium 2 gm/Sodium Chloride 100 ml @ 100 mls/hr Q6HR IV 02/26/25 05:30 02/26/25 20:13 100 MLS/HR Acetaminophen 650 mg Q6HPRN PRN PO 02/26/25 06:15 02/26/25 22:13 650 MG Prenat Multivit/ Anderson/Iron/Folic Ac 1 DAILY PO 02/26/25 10:00 02/26/25 10:07 1 Docusate Sodium 200 mg DAILY PO 02/26/25 08:00 02/26/25 10:07 200 MG Gentamicin Sulfate 120 mg/ Dextrose 103 ml @ 100 mls/hr DAILY IV 02/26/25 10:00 02/26/25 11:07 100 MLS/HR Fluoxetine HCl 40 mg DAILY@2000 PO 02/26/25 20:00 02/26/25 20:13 40 MG Ibuprofen 800 mg Q8HP PRN PO 02/26/25 19:45 02/26/25 20:14 800 MG laboratory and microbiology Laboratory Tests 02/26/25 19:47 02/25/25 07:25 Test 02/25/25 07:25 Range/Units Serum Glucose 123 H 74-106 mg/dL Objective O: VSS, afebrile Chest: heart sounds normal and lung sounds clear bilaterally Abd: soft, non-tender, fundus at U/firm/midline, active bowel sounds, no rebound or guarding Perineum: sutures intact, edges well approximated, no erythema/edema noted Ext: Non-tender, No edema, 2+ BLE DTRs Lochia: minimal See lab results IV amp/gent for 24 hours post Problems(with codes): (1) (normal spontaneous vaginal delivery) (2) First degree perineal laceration during delivery (3) Precipitous drop in hematocrit (4) Obstetric labial laceration, delivered, current hospitalization (5) Chorioamnionitis Assessment/Plan A: 34yo now PPD#1 s/p Chorioamnionitis Anemia Rh+ Rubella Immune P: D/C home today if peds discharges baby and afebrile for 24 hours after Rx sent to pharmacy precautions and preeclampsia warning signs reviewed F/U with [facility] office in 2 weeks Plan discussed with: Patient, Spouse, Other (family) Visit Coding OBGYN Date of Service: Feb 27, 2025 Billing Provider: RYAN MCGRAW CNM FRUIT AND VEGETABLE CLASSER Common Visit Codes: [id number] INP/OBS CARE(HIGH) RYAN MCGRAW CNM Feb 27, 2025 00:24
[2025-02-27 06:45] VITALS: BP 128/74; PULSE 79; RESP 18; TEMP 97.6; O2SAT 97
--- NOTE | 2025-02-27 10:46 | DVHDS2 ---
Obstetrics Discharge Summary Obstetrics Discharge Summary Date of Admission: Feb 25, 2025 Date of Discharge: Feb 27, 2025 Reason For Admission: Induction of Labor Procedures: NST, Ultrasound, Mgmt of Obstetrics Compli (PIH per Dr. Astudillo) Intrapartum Procedures: Spontaneous vaginal deliv Procedures: Antibiotics, Hct/date: (02/26/25), Hgb/date: (02/26/25) Operative Complicat: Laceration (first degree perineal, left sulcus, bilateral labial lacs) Discharge Diagnosis: Term -Delivered, Amnionitis Discharge Information: Activity (as tolerated, no heavy lifting and nothing in the vagina for 6 weeks), Diet (Routine), Medications (Rx sent), Instructions (Routine), Discharge to (Home), Accompanied by (partner), Discarge date (02/27/25) Visit Coding OBGYN Date of Service: Feb 27, 2025 Billing Provider: RYAN MCGRAW CNM BRAKE REPAIRER AIR Common Visit Codes: [id number] DISCH DAY <30MIN RYAN MCGRAW CNM Feb 27, 2025 10:46
[2025-02-27 11:13] VITALS: BP 123/73; PULSE 77; RESP 16; O2SAT 98
== END 2025-02-27 15:34 | disposition home or self-care (01) | DRG 805 ==
LOC: LDRP 07:02
PROVIDERS: ADMIT Obstetrics & Gynecology; ATTEND Obstetrics & Gynecology
PROC: 10E0XZZ Delivery of Products of Conception, External Approach (ICD-10-PCS; principal; 2025-02-26)
PROC: 0HQ9XZZ Repair Perineum Skin, External Approach (ICD-10-PCS; 2025-02-26)
PROC: 0UQMXZZ Repair Vulva, External Approach (ICD-10-PCS; 2025-02-26)
PROC: 3E0R3BZ Introduction of Anesthetic Agent into Spinal Canal, Percutaneous Approach (ICD-10-PCS; 2025-02-26)
PROC: 00HU33Z Insertion of Infusion Device into Spinal Canal, Percutaneous Approach (ICD-10-PCS; 2025-02-26)
DX: O13.4 Gestational [pregnancy-induced] hypertension without significant proteinuria, complicating childbirth (principal); O41.1230 Chorioamnionitis, third trimester, not applicable or unspecified; Z37.0 Single live birth; O99.824 Streptococcus B carrier state complicating childbirth; O70.0 First degree perineal laceration during delivery; O90.81 Anemia of the puerperium; Z3A.38 38 weeks gestation of pregnancy
CPT/HCPCS: 36415; 59025; 59409; 62282; 76805; 80053; 80307; 81001; 81002; 82570; 84156; 84550; 85025; 85610; 85730; 86780; 86850; 86900; 86901; 94760; 94762; 96360; 96361; 96365; 96366; 96372; 96374; 96375; A4344; G0378; J2405; J2540; J2590; J7060